=== PATIENT | female | born 1990 | race Hispanic/Latino ===

== ENCOUNTER 2020-02-15 11:35 | Inpatient (IN) | payer OTHER, MEDICAID ==
[~2020-02-15] VITALS: Ht 152.4 cm; Wt 123.4 kg
[2020-02-15] MEDS ORDERED: LACTATED RINGERS 1000ML 1,000 ML IV PRN (11:57)
[2020-02-15] MEDS ORDERED: AMPICILLIN 2GM+NS 100ML 100 ML IV ONE (12:56)
[2020-02-15 12:57] LABS: HEMATOCRIT 34.1 % (36-48); MEAN CORPUSCULAR HEMOGLOBIN 28.1 pg (27.0-33.0); MEAN CORPUSCULAR HGB CONC 33.1 g/dL (32.0-36.0); MEAN CORPUSCULAR VOLUME 84.8 fL (79-99); RED BLOOD CELL COUNT(AUTO) 4.02 MIL/uL (4.00-5.50); RED CELL DISTRIBUTION WIDTH 13.6 % (11.0-15.5); WHITE BLOOD COUNT (AUTO) 10.9 K/uL (4.8-10.8)
[2020-02-15 12:58] LABS: APPEARANCE,URINE Cloudy (CLEAR); BILIRUBIN,URINE Negative (NEGATIVE); COLOR,URINE Dark Yellow (YELLOW); GLUCOSE, URINE (UA) Negative (NEGATIVE); KETONES,URINE >=80 mg/dL (NEGATIVE); LEUKOCYTE ESTERASE ,URINE Small (NEGATIVE); NITRATE,URINE Negative (NEGATIVE); OCCULT BLOOD,URINE Negative (NEGATIVE); PH,URINE 6.5 (5.0-8.0); PROTEIN,URINE Trace mg/dL (NEGATIVE)
[2020-02-15] MEDS ORDERED: OXYTOCIN 10 USP UNITS/ML 20 UNIT in LACTATED RINGERS 1000ML 1,000 ML IV SCH (13:00)
[2020-02-15] MEDS ORDERED: AMPICILLIN 2GM+NS 100ML 100 ML IV SCH (13:00)
[2020-02-15] MEDS ORDERED: EPHEDRINE SULFATE 50 MG/ML AMPULE IVP PRN (13:00)
[2020-02-15] MEDS ORDERED: NALOXONE HCL 0.4 MG/1 ML ML IV PRN (13:00)
[2020-02-15] MEDS ORDERED: LACTATED RINGERS 500 ML 500 ML IV PRN (13:00)
[2020-02-15 13:06] LABS: AMPHET/METH SCREEN,URINE NEGATIVE (NEGATIVE); BARBITURATE SCREEN, URINE NEGATIVE (NEGATIVE); BENZODIAZEPINES SCREEN,URINE NEGATIVE (NEGATIVE); CANNABINOID SCREEN,URINE NEGATIVE (NEGATIVE); COCAINE SCREEN,URINE NEGATIVE (NEGATIVE); OPIATE SCREEN,URINE NEGATIVE (NEGATIVE); PHENCYCLIDINE SCREEN,URINE NEGATIVE (NEGATIVE)
[2020-02-15 13:07] LABS: RBC,URINE 0-1 /HPF (0-1)
[2020-02-15 13:08] LABS: BACTERIA,URINE Rare /HPF (None Seen); MUCUS,URINE Rare LPF (None Seen); SQUAMOUS EPITHELIAL CELL,UR Moderate /HPF (0-2)
[2020-02-15] MEDS: OXYTOCIN-LR 20 UNITS/1000 ML 1,000 ML IV SCH (13:47)
[2020-02-15] MEDS ORDERED: PROMETHAZINE HCL 25 MG/ML 1ML AMPULE IM SCH (14:00)
[2020-02-15] MEDS ORDERED: MEPERIDINE-PF 50 MG/ML SYG IVP ONE (14:00)
[2020-02-15] MEDS: AMPICILLIN 1GM+NS 50ML 50 ML IV SCH ×2 (17:14→21:00)
[2020-02-15] MEDS ORDERED: ACETAMINOPHEN-CODEINE 300/30MG TAB PO PRN (23:45)
[2020-02-15] MEDS ORDERED: DIPH,PERTUSS(ACELL),TET VAC/PF 0.5 ML VIAL IM PRN (23:45)
[2020-02-15] MEDS ORDERED: WITCH HAZEL 1 PAD TP PRN (23:45)
[2020-02-15] MEDS ORDERED: ACETAMINOPHEN 325 MG TAB PO PRN (23:45)
[2020-02-15] MEDS ORDERED: MEASLES/MUMPS/RUBELLA VACCINE, LIVE 0.5 ML/VIAL SQ PRN (23:45)
[2020-02-15] MEDS ORDERED: BENZOCAINE/LANOLIN/ALOE VERA 60 ML AEROSOL TP PRN (23:45)
[2020-02-15] MEDS ORDERED: LANOLIN 30GM OINTMENT TP PRN (23:45)
[2020-02-16] VITALS (7 sets, daily range): BP systolic 104–126; BP diastolic 59–80
[2020-02-16] MEDS: IBUPROFEN 600 MG TABLET PO PRN ×3 (00:34→20:53)
[2020-02-16] MEDS: OXYTOCIN-LR 20 UNITS/1000 ML 1,000 ML IV SCH (00:49)
[2020-02-16] MEDS ORDERED: PREN-154 PO (03:29)
--- NOTE | 2020-02-16 04:00 | NUR ---
PT. INCONTINENT OF URINE IN BED, ASSISTED TO BATHROOM BY MIGUELITO, VOIDED MORE IN THE COMMODE. SKIN CARE GIVEN AND LINEN AND GOWN CHANGED. SCAN AMT. OF MARIANELA NOTED. PT. ASSIST BACK IN BED, WELL TOLERATED.
[2020-02-16] MEDS: DOCUSATE SODIUM 100 MG CAP PO SCH ×2 (09:10→20:48)
--- NOTE | 2020-02-16 15:40 | NUR ---
REPORT GIVEN TO VINCENT TIAN RN FOR CONTINUITY OF CARE. PT IN STABLE CONDITION. NO COMPLAINTS AT THIS TIME.
[2020-02-17 03:00] VITALS: BP 135/87
[2020-02-17 05:13] LABS: HEPATITIS Bs ANTIGEN SCREEN P Negative (Negative)
--- NOTE | 2020-02-17 07:30 | NUR ---
DR. CARPENTER ROUNDING ON PATIENT. DISCHARGE POC DISCUSSED WITH PATIENT. PATIENT OKAY FOR DISCHARGE.
[2020-02-17 07:35] VITALS: BP 129/81
[2020-02-17] MEDS: DOCUSATE SODIUM 100 MG CAP PO SCH (09:02)
[2020-02-17] MEDS: IBUPROFEN 600 MG TABLET PO PRN (09:04)
[2020-02-17 11:06] VITALS: BP 130/83
--- NOTE | 2020-02-17 11:30 | NUR ---
PATIENT LEFT UNIT VIA WHEELCHAIR WITH BABY IN ARMS. PERSONAL VEHICLE USED FOR TRANSPORTATION ACCOMPANIED BY SIGNIFICANT OTHER. NO COMPLAINTS OR CONCERNS ADDRESSED FROM PATIENT ON DISCHARGE.
== END 2020-02-17 11:30 | disposition home or self-care (01) | DRG 807 ==
LOC: EDH 11:35 → LDH 11:36 → INTOOBSV 11:36 → OBSVTOIN 11:36 → WSH 02-16 01:32
PROVIDERS: ADMIT Specialist; ATTEND Specialist
PROC: 10E0XZZ Delivery of Products of Conception, External Approach (ICD-10-PCS; principal; 2020-02-15)
PROC: 0W8NXZZ Division of Female Perineum, External Approach (ICD-10-PCS; 2020-02-15)
PROC: 3E0R3BZ Introduction of Anesthetic Agent into Spinal Canal, Percutaneous Approach (ICD-10-PCS; 2020-02-15)
PROC: 00HU33Z Insertion of Infusion Device into Spinal Canal, Percutaneous Approach (ICD-10-PCS; 2020-02-15)
PROC: 3E0234Z Introduction of Serum, Toxoid and Vaccine into Muscle, Percutaneous Approach (ICD-10-PCS; 2020-02-15)
PROC: 3E0134Z Introduction of Serum, Toxoid and Vaccine into Subcutaneous Tissue, Percutaneous Approach (ICD-10-PCS; 2020-02-15)
DX: O60.14X0 Preterm labor third trimester with preterm delivery third trimester, not applicable or unspecified (principal); Z37.0 Single live birth; O99.214 Obesity complicating childbirth; E66.01 Morbid (severe) obesity due to excess calories; Z3A.36 36 weeks gestation of pregnancy; Z23 Encounter for immunization; O42.913 Preterm premature rupture of membranes, unspecified as to length of time between rupture and onset of labor, third trimester
CPT/HCPCS: 36415; 80305; 81001; 85027; 86592; 86701; 86850; 86900; 86901; 87088; 87340; 87390; A4314; G0378; J0290; J2590; J7120

== ENCOUNTER 2020-02-25 22:01 | Observation (INO) | payer OTHER, MEDICAID ==
[~2020-02-25] VITALS: Ht 152.4 cm; Wt 117.0 kg
[~2020-02-25 22:01] MED LIST: PREN-154 PO
[2020-02-25] MEDS ORDERED: MORPHINE SULFATE 4 MG/1ML SYG ONE (22:21)
[2020-02-25] MEDS ORDERED: ONDANSETRON HCL 4 MG/2 ML VIAL ONE (22:21)
[2020-02-25 22:49] LABS: BASOPHILS % (AUTO) 0.3 % (0.0-5.0); EOSINOPHILS % (AUTO) 1.8 % (0.0-8.0); HEMATOCRIT 36.7 % (36-48); LYMPHOCYTES % (AUTO) 26.7 % (21.0-51.0); MEAN CORPUSCULAR HEMOGLOBIN 27.4 pg (27.0-33.0); MEAN CORPUSCULAR HGB CONC 32.2 g/dL (32.0-36.0); MEAN CORPUSCULAR VOLUME 85.2 fL (79-99); MONOCYTES % (AUTO) 3.5 % (3.0-13.0); NEUTROPHILS % (AUTO) 67.4 % (40.0-77.0); PLATELET COUNT (AUTO) 352 K/uL (130-400); RED BLOOD CELL COUNT(AUTO) 4.31 MIL/uL (4.00-5.50); RED CELL DISTRIBUTION WIDTH 13.2 % (11.0-15.5); WHITE BLOOD COUNT (AUTO) 12.1 K/uL (4.8-10.8)
[2020-02-25 22:57] LABS: CREATININE 0.8 mg/dL (0.5-1.5); POTASSIUM 3.1 mmol/L (3.5-5.1)
[2020-02-25 23:02] LABS: APPEARANCE,URINE Turbid (CLEAR); BILIRUBIN,TOTAL 0.3 mg/dL (0.2-1.0); BILIRUBIN,URINE Negative (NEGATIVE); COLOR,URINE Red (YELLOW); GLUCOSE, URINE (UA) Negative (NEGATIVE); KETONES,URINE Negative (NEGATIVE); LEUKOCYTE ESTERASE ,URINE Large (NEGATIVE); NITRATE,URINE Negative (NEGATIVE); OCCULT BLOOD,URINE Large (NEGATIVE); PH,URINE 5.5 (5.0-8.0); PROTEIN,URINE POS 2+ mg/dL (NEGATIVE); TOTAL PROTEIN, SERUM 7.8 g/dL (6.0-8.3)
[2020-02-25 23:04] LABS: HCG,QUAL RESULT NEGATIVE (NEGATIVE)
[2020-02-25 23:13] LABS: BACTERIA,URINE Rare /HPF (None Seen); RBC,URINE 51-100 /HPF (0-1); SQUAMOUS EPITHELIAL CELL,UR Few /HPF (0-2); WBC,URINE 26-50 /HPF (0-1)
[2020-02-26] MEDS ORDERED: ZOSYN 3.375GM+NS 50ML 50 ML IV ONE ×2 (01:06→08:33)
[2020-02-26] MEDS ORDERED: POTASSIUM CHLORIDE 20MEQ/100ML 100 ML IV ONE (01:34)
[2020-02-26] MEDS ORDERED: SODIUM CHLORIDE 0.9% 1000ML 1,000 ML, 0.9 % SODIUM CHLORIDE 1,000 ML IV SCH ×2 (02:20)
[2020-02-26] MEDS ORDERED: DiphenhydrAMINE HCL 50 MG/ML VIAL IV PRN (02:30)
[2020-02-26] MEDS ORDERED: ACETAMINOPHEN 325 MG TAB PO PRN ×2 (02:30)
[2020-02-26] MEDS ORDERED: MORPHINE SULFATE 2 MG/ML 1ML SYG IVP PRN (02:30)
[2020-02-26] MEDS ORDERED: ONDANSETRON HCL 4 MG/2 ML VIAL IV PRN (02:30)
[2020-02-26 04:57] LABS: BASOPHILS % (AUTO) 0.2 % (0.0-5.0); EOSINOPHILS % (AUTO) 0.2 % (0.0-8.0); LYMPHOCYTES % (AUTO) 12.6 % (21.0-51.0); MEAN CORPUSCULAR HEMOGLOBIN 27.6 pg (27.0-33.0); MEAN CORPUSCULAR HGB CONC 32.5 g/dL (32.0-36.0); MEAN CORPUSCULAR VOLUME 84.9 fL (79-99); NEUTROPHILS % (AUTO) 79.7 % (40.0-77.0); PLATELET COUNT (AUTO) 299 K/uL (130-400); RED BLOOD CELL COUNT(AUTO) 3.77 MIL/uL (4.00-5.50); RED CELL DISTRIBUTION WIDTH 13.2 % (11.0-15.5); WHITE BLOOD COUNT (AUTO) 10.1 K/uL (4.8-10.8)
[2020-02-26 05:28] LABS: ALBUMIN 2.4 g/dL (3.5-5.0); BILIRUBIN,TOTAL 0.6 mg/dL (0.2-1.0); CREATININE 0.7 mg/dL (0.5-1.5); MAGNESIUM 1.9 mg/dL (1.80-2.40); PHOSPHORUS 4.5 mg/dL (2.5-4.9); POTASSIUM 3.9 mmol/L (3.5-5.1); TOTAL PROTEIN, SERUM 6.5 g/dL (6.0-8.3)
[2020-02-26] MEDS ORDERED: RENAL DOSE IV SCH (07:30)
[2020-02-26] MEDS ORDERED: FAMOTIDINE/PF 20 MG/2 ML VIAL IV ONE (08:34)
[2020-02-26] MEDS ORDERED: FAMOTIDINE/PF 20 MG/2 ML VIAL IV SCH (09:00)
[2020-02-26] MEDS ORDERED: MORPHINE SULFATE 2 MG/ML 1ML SYG ONE (09:32)
--- NOTE | 2020-02-26 11:45 | NUR ---
PATIENT ARRIVED TO UNIT FROM ER. PATIENT ORIENTED TO ROOM AT THIS TIME. PATIENT IS CRYING STATING THAT SHE MISSES HER BABY. (PT DELIVERED 02/16/20) PATIENT REPORTS NO PAIN AT THIS TIME.
[2020-02-26 11:54] VITALS: BP 122/85
--- NOTE | 2020-02-26 12:10 | NUR ---
LORI AT DR. AMELIA CHRISTENSEN'S OFFICE NOTIFIED OF GI CONSULT FOR DR. CHRISTENSEN. LORI WILL NOTIFY
--- NOTE | 2020-02-26 12:21 | NUR ---
DR. CHRISTENSEN CALLED BACK REGARDING CONSULT. UPDATED ON PATIENT'S STATUS AND CURRENT LABS. NEW ORDERS TO OBTAIN CONSENT FOR ERCP FOR 02/25 AT 1800 RECEIVED
--- NOTE | 2020-02-26 12:25 | NUR ---
POC DISCUSSED WITH PATIENT. PT VOICED UNDERSTANDING.
--- NOTE | 2020-02-26 12:40 | NUR ---
PATIENT STATES SHE DOES NOT WANT ANY PROCEDURES DONE AND IS WANTING TO LEAVE AMA. RISKS OF LEAVING AMA DISCUSSED WITH PATIENT. INFORMED PATIENT THAT SHE CAN HAVE TIME BEFORE MAKING FINAL DECISION. PATIENT STATES SHE DOES NOT NEED MORE TIME AND WANTS TO LEAVE.
--- NOTE | 2020-02-26 12:42 | NUR ---
DEWATERING FILTERING SUPERVISOR RASHI ENGLE NOTIFIED THAT PATIENT WISHES TO LEAVE AMA.
--- NOTE | 2020-02-26 12:42 | NUR ---
VINCENT CHENEY RN NOTIFIED PATIENT WANTS TO LEAVE A
--- NOTE | 2020-02-26 12:50 | NUR ---
DR. CHRISTENSEN NOTIFIED THAT PATIENT DECIDED TO LEAVE AMA.
--- NOTE | 2020-02-26 12:52 | NUR ---
DR. SALAZAR INFORMED PATIENT WANTS TO LEAVE AMA. VERBALIZED UNDERSTANDING. AMA FORM TO BE FILLED PER PROTOCOL.
[2020-02-26] MEDS ORDERED: ZOSYN 3.375GM+NS 50ML 50 ML IV SCH (13:00)
--- NOTE | 2020-02-26 13:10 | NUR ---
REEDUCATED PATIENT ON THE RISKS OF LEAVING AMA. PATIENT VOICED UNDERSTANDING AND VERBALIZED SHE WANTS TO SIGN AMA. AMA FORM SIGNED BY PATIENT. 20G IV REMOVED FROM RIGHT AC. TIP INTACT, BANDAID APPLIED SITE WNL
--- NOTE | 2020-02-26 13:15 | NUR ---
PATIENT LEFT UNIT VIA SELF AMBULATION. STEADY GAIT NOTED.
== END 2020-02-26 13:15 | disposition left against medical advice (07) ==
LOC: EDH 22:01 → EDHIP 02-26 02:20 → INTOOBSV 02-26 02:20 → WSH 02-26 11:50
PROVIDERS: ADMIT Internal Medicine; ATTEND Internal Medicine
DX: K80.50 Calculus of bile duct without cholangitis or cholecystitis without obstruction (principal); Z20.828 Contact with and (suspected) exposure to other viral communicable diseases
CPT/HCPCS: 36415 ×2; 74181; 76705; 80053 ×2; 81001; 81025; 83690; 83735 ×2; 84100; 85025 ×2; 87040 ×2; 87088; 87426; 99284; G0378 ×11; J2270; J2405; J2543 ×2; J3480; J3490; J7030; U0003

== ENCOUNTER 2020-02-26 20:02 | Inpatient (IN) | payer OTHER, MEDICAID ==
[~2020-02-26] VITALS: Ht 152.4 cm; Wt 115.7 kg
[2020-02-26 20:49] LABS: BASOPHILS % (AUTO) 0.4 % (0.0-5.0); EOSINOPHILS % (AUTO) 1.4 % (0.0-8.0); HEMATOCRIT 33.5 % (36-48); MEAN CORPUSCULAR HEMOGLOBIN 27.4 pg (27.0-33.0); MEAN CORPUSCULAR HGB CONC 32.2 g/dL (32.0-36.0); MONOCYTES % (AUTO) 4.4 % (3.0-13.0); NEUTROPHILS % (AUTO) 66.3 % (40.0-77.0); PLATELET COUNT (AUTO) 335 K/uL (130-400); RED BLOOD CELL COUNT(AUTO) 3.94 MIL/uL (4.00-5.50); RED CELL DISTRIBUTION WIDTH 13.2 % (11.0-15.5); WHITE BLOOD COUNT (AUTO) 5.7 K/uL (4.8-10.8)
[2020-02-26 20:57] LABS: APPEARANCE,URINE Clear (CLEAR); BILIRUBIN,URINE Moderate (NEGATIVE); COLOR,URINE Dark Yellow (YELLOW); GLUCOSE, URINE (UA) Negative (NEGATIVE); KETONES,URINE Negative (NEGATIVE); LEUKOCYTE ESTERASE ,URINE Moderate (NEGATIVE); NITRATE,URINE Negative (NEGATIVE); OCCULT BLOOD,URINE Moderate (NEGATIVE); PROTEIN,URINE Negative (NEGATIVE)
[2020-02-26 20:58] LABS: CREATININE 0.6 mg/dL (0.5-1.5); POTASSIUM 3.6 mmol/L (3.5-5.1)
[2020-02-26 21:02] LABS: ALBUMIN 2.8 g/dL (3.5-5.0); BILIRUBIN,TOTAL 1.7 mg/dL (0.2-1.0); HCG,QUAL RESULT NEGATIVE (NEGATIVE); TOTAL PROTEIN, SERUM 7.1 g/dL (6.0-8.3)
[2020-02-26] MEDS ORDERED: ZOSYN 3.375GM+NS 50ML 50 ML IV ONE (21:12)
[2020-02-26 21:19] LABS: BACTERIA,URINE Few /HPF (None Seen); MUCUS,URINE Few LPF (None Seen); SQUAMOUS EPITHELIAL CELL,UR Few /HPF (0-2)
[2020-02-26] MEDS ORDERED: LACTATED RINGERS 1000ML 1,000 ML, LACTATED RINGERS 1000ML 1,000 ML IV SCH (21:41)
[2020-02-26] MEDS ORDERED: ACETAMINOPHEN 325 MG TAB PO PRN (21:45)
[2020-02-26] MEDS ORDERED: DiphenhydrAMINE HCL 50 MG/ML VIAL IV PRN (21:45)
[2020-02-26] MEDS ORDERED: MORPHINE SULFATE 2 MG/ML 1ML SYG IV PRN (21:45)
[2020-02-26] MEDS ORDERED: ONDANSETRON HCL 4 MG/2 ML VIAL IV PRN (21:45)
[2020-02-26] MEDS: ENOXAPARIN SODIUM 40 MG/0.4 ML SYRINGE SQ SCH (21:45)
[2020-02-26] MEDS ORDERED: ZOLPIDEM TARTRATE 5 MG TAB PO PRN (21:45)
[2020-02-26] MEDS ORDERED: MAG HYDROX/AL HYDROX/SIMETH ES 30 ML SUSP UDCUP PO PRN (21:45)
[2020-02-27 01:41] VITALS: BP 94/54
[2020-02-27 03:50] VITALS: BP 120/68
[2020-02-27] MEDS: MORPHINE SULFATE 4 MG/1ML SYG IV PRN ×2 (05:30→20:23)
[2020-02-27 07:16] LABS: BASOPHILS % (AUTO) 0.4 % (0.0-5.0); EOSINOPHILS % (AUTO) 2.8 % (0.0-8.0); HEMATOCRIT 32.4 % (36-48); LYMPHOCYTES % (AUTO) 38.3 % (21.0-51.0); MEAN CORPUSCULAR HEMOGLOBIN 27.6 pg (27.0-33.0); MEAN CORPUSCULAR HGB CONC 32.4 g/dL (32.0-36.0); MEAN CORPUSCULAR VOLUME 85.3 fL (79-99); MONOCYTES % (AUTO) 4.4 % (3.0-13.0); NEUTROPHILS % (AUTO) 53.7 % (40.0-77.0); PLATELET COUNT (AUTO) 302 K/uL (130-400); RED CELL DISTRIBUTION WIDTH 13.2 % (11.0-15.5); WHITE BLOOD COUNT (AUTO) 6.8 K/uL (4.8-10.8)
[2020-02-27 07:42] LABS: ALBUMIN 2.5 g/dL (3.5-5.0); CREATININE 0.6 mg/dL (0.5-1.5); POTASSIUM 3.5 mmol/L (3.5-5.1); TOTAL PROTEIN, SERUM 6.5 g/dL (6.0-8.3)
[2020-02-27 08:02] VITALS: BP 113/73
[2020-02-27 11:10] VITALS: BP 116/84
[2020-02-27] MEDS: FAMOTIDINE/PF 20 MG/2 ML VIAL IV SCH ×2 (11:13→20:24)
[2020-02-27] MEDS: LACTATED RINGERS 1000ML 1,000 ML IV SCH ×3 (14:03→23:05)
[2020-02-27 16:39] VITALS: BP 119/78
--- NOTE | 2020-02-27 17:21 | NUR ---
DCP CM spoke to pt discussed dc plans. Pt is independent prior to admission, lives at home with spouse. Denies any equipments/services. Feels safe to go back home, still drives and works, spouse able to assist with transportation and needs as necessary. DC plan to home once stable. CM to cont to follow up. Addendum: 02/27/20 at 1722 by DREAD FERRARO LVN CM Amended: Links added.
[2020-02-27 20:00] VITALS: BP 103/66
[2020-02-27] MEDS: ENOXAPARIN SODIUM 40 MG/0.4 ML SYRINGE SQ SCH ×2 (20:24→20:31)
[2020-02-28] VITALS: BP 101/62
[2020-02-28 04:00] VITALS: BP 113/68
[2020-02-28 04:22] LABS: BASOPHILS % (AUTO) 0.4 % (0.0-5.0); EOSINOPHILS % (AUTO) 2.4 % (0.0-8.0); HEMATOCRIT 31.9 % (36-48); LYMPHOCYTES % (AUTO) 39.5 % (21.0-51.0); MEAN CORPUSCULAR HEMOGLOBIN 27.5 pg (27.0-33.0); MEAN CORPUSCULAR HGB CONC 32.3 g/dL (32.0-36.0); MEAN CORPUSCULAR VOLUME 85.1 fL (79-99); MONOCYTES % (AUTO) 3.7 % (3.0-13.0); NEUTROPHILS % (AUTO) 53.6 % (40.0-77.0); PLATELET COUNT (AUTO) 341 K/uL (130-400); RED BLOOD CELL COUNT(AUTO) 3.75 MIL/uL (4.00-5.50); RED CELL DISTRIBUTION WIDTH 13.2 % (11.0-15.5); WHITE BLOOD COUNT (AUTO) 7.6 K/uL (4.8-10.8)
[2020-02-28 04:45] LABS: ALBUMIN 2.5 g/dL (3.5-5.0); BILIRUBIN,TOTAL 0.5 mg/dL (0.2-1.0); CREATININE 0.6 mg/dL (0.5-1.5); MAGNESIUM 1.9 mg/dL (1.80-2.40); PHOSPHORUS 4.6 mg/dL (2.5-4.9); POTASSIUM 3.2 mmol/L (3.5-5.1); TOTAL PROTEIN, SERUM 6.9 g/dL (6.0-8.3)
[2020-02-28] MEDS: LACTATED RINGERS 1000ML 1,000 ML IV SCH ×3 (05:28→20:50)
--- NOTE | 2020-02-28 06:51 | NUR ---
I paged doctor front desk assistant per answering service. [id number], no return call yet, needed. To let them know patient potassium at 3.2.
[2020-02-28 07:54] VITALS: BP 96/57
[2020-02-28] MEDS: FAMOTIDINE/PF 20 MG/2 ML VIAL IV SCH ×2 (09:15→21:35)
[2020-02-28 12:41] VITALS: BP 111/68
[2020-02-28 16:23] VITALS: BP 168/87
[2020-02-28] MEDS ORDERED: LIDOCAINE HCL-MPF 1% 2ML VIAL IV PRN (20:00)
[2020-02-28] MEDS ORDERED: POTASSIUM CHLORIDE 20MEQ/100ML 100 ML IV PRN (20:00)
[2020-02-28] MEDS ORDERED: POTASSIUM CHLORIDE 10% ELIXIR 20 MEQ/15 ML UDCUP PO PRN (20:00)
[2020-02-28 20:28] VITALS: BP 120/77
[2020-02-28] MEDS: MORPHINE SULFATE 4 MG/1ML SYG IV PRN (22:23)
[2020-02-28] MEDS: POTASSIUM CHLORIDE 20 MEQ ERTAB PO PRN (23:47)
[2020-02-29 00:07] VITALS: BP 115/54
[2020-02-29] MEDS: LACTATED RINGERS 1000ML 1,000 ML IV SCH ×3 (02:54→16:55)
[2020-02-29 03:55] VITALS: BP 112/64
[2020-02-29 06:45] LABS: BASOPHILS % (AUTO) 0.4 % (0.0-5.0); EOSINOPHILS % (AUTO) 2.2 % (0.0-8.0); HEMATOCRIT 32.6 % (36-48); LYMPHOCYTES % (AUTO) 35.1 % (21.0-51.0); MEAN CORPUSCULAR HEMOGLOBIN 27.4 pg (27.0-33.0); MEAN CORPUSCULAR HGB CONC 32.5 g/dL (32.0-36.0); MEAN CORPUSCULAR VOLUME 84.2 fL (79-99); MONOCYTES % (AUTO) 5.2 % (3.0-13.0); NEUTROPHILS % (AUTO) 56.8 % (40.0-77.0); PLATELET COUNT (AUTO) 308 K/uL (130-400); RED BLOOD CELL COUNT(AUTO) 3.87 MIL/uL (4.00-5.50); RED CELL DISTRIBUTION WIDTH 13.2 % (11.0-15.5); WHITE BLOOD COUNT (AUTO) 7.4 K/uL (4.8-10.8)
[2020-02-29 08:21] VITALS: BP 115/67
[2020-02-29 08:51] LABS: ALBUMIN 2.5 g/dL (3.5-5.0); BILIRUBIN,TOTAL 0.7 mg/dL (0.2-1.0); CREATININE 0.6 mg/dL (0.5-1.5); POTASSIUM 3.4 mmol/L (3.5-5.1); TOTAL PROTEIN, SERUM 6.5 g/dL (6.0-8.3)
[2020-02-29] MEDS: FAMOTIDINE/PF 20 MG/2 ML VIAL IV SCH ×2 (09:17→21:49)
[2020-02-29] MEDS: POTASSIUM CHLORIDE 20 MEQ ERTAB PO PRN ×2 (11:10→16:22)
[2020-02-29] MEDS: MORPHINE SULFATE 4 MG/1ML SYG IV PRN ×2 (11:12→18:47)
[2020-02-29 11:41] VITALS: BP 121/66
[2020-02-29] MEDS ORDERED: CEFAZOLIN SODIUM 1 GM VIAL IVP PRN (14:30)
[2020-02-29 16:35] VITALS: BP 117/72
[2020-02-29 20:00] VITALS: BP 114/66
[2020-03-01] VITALS (25 sets, daily range): BP systolic 109–138; BP diastolic 56–89
[2020-03-01] MEDS: LACTATED RINGERS 1000ML 1,000 ML IV SCH ×4 (00:07→21:11)
[2020-03-01 03:58] LABS: BASOPHILS % (AUTO) 0.4 % (0.0-5.0); EOSINOPHILS % (AUTO) 2.3 % (0.0-8.0); HEMATOCRIT 32.9 % (36-48); LYMPHOCYTES % (AUTO) 39.6 % (21.0-51.0); MEAN CORPUSCULAR HGB CONC 32.2 g/dL (32.0-36.0); MEAN CORPUSCULAR VOLUME 83.9 fL (79-99); MONOCYTES % (AUTO) 4.8 % (3.0-13.0); NEUTROPHILS % (AUTO) 52.5 % (40.0-77.0); PLATELET COUNT (AUTO) 320 K/uL (130-400); RED BLOOD CELL COUNT(AUTO) 3.92 MIL/uL (4.00-5.50); RED CELL DISTRIBUTION WIDTH 13.2 % (11.0-15.5); WHITE BLOOD COUNT (AUTO) 7.5 K/uL (4.8-10.8)
[2020-03-01 04:20] LABS: ALBUMIN 2.6 g/dL (3.5-5.0); BILIRUBIN,TOTAL 0.9 mg/dL (0.2-1.0); CREATININE 0.6 mg/dL (0.5-1.5); POTASSIUM 3.6 mmol/L (3.5-5.1); TOTAL PROTEIN, SERUM 6.6 g/dL (6.0-8.3)
[2020-03-01] MEDS: FAMOTIDINE/PF 20 MG/2 ML VIAL IV SCH ×2 (09:06→21:10)
[2020-03-01] MEDS ORDERED: BUPIVACAINE/PF 0.5% 30ML VIAL ONE (10:56)
[2020-03-01] MEDS ORDERED: ONDANSETRON HCL 4 MG/2 ML VIAL ONE (11:02)
[2020-03-01] MEDS ORDERED: GLYCOPYRROLATE 1 MG/5 ML SYRINGE ONE (11:02)
[2020-03-01] MEDS ORDERED: MIDAZOLAM HCL 1 MG/ML 2ML VIAL ONE (11:02)
[2020-03-01] MEDS ORDERED: LIDOCAINE PF 2% 5ML ABBOJECT ONE (11:02)
[2020-03-01] MEDS ORDERED: SUCCINYLCHOLINE CHLORIDE 20 MG/ML 10 ML VIAL ONE (11:02)
[2020-03-01] MEDS ORDERED: DEXAMETHASONE SOD PHOSPHATE 10MG/ML 1ML VIAL ONE (11:02)
[2020-03-01] MEDS ORDERED: PROPOFOL 10 MG/ML 20ML VIAL IV ONE (11:03)
[2020-03-01] MEDS ORDERED: ROCURONIUM 10MG/1ML SYR 10 MG/ML ML ONE (11:03)
[2020-03-01] MEDS ORDERED: FENTANYL CITRATE PF 50 MCG/1 ML 2ML VIAL ONE ×2 (11:03→11:47)
[2020-03-01] MEDS ORDERED: NEOSTIGMINE 5MG/5ML SYR IV ONE (11:03)
[2020-03-01] MEDS ORDERED: PHENYLEPHRINE HCL 10 MG/ML 1ML VIAL IV ONE (11:25)
[2020-03-01] MEDS ORDERED: MEPERIDINE-PF 25 MG/ML SYG ONE ×3 (11:55→12:19)
[2020-03-01] MEDS: MORPHINE SULFATE 4 MG/1ML SYG IV PRN (14:23)
--- NOTE | 2020-03-01 18:30 | NUR ---
VOIDED assisted pt to bathroom voided without difficulty
[2020-03-01] MEDS: CEFAZOLIN SODIUM 1 GM VIAL IVP SCH (21:10)
--- NOTE | 2020-03-01 21:10 | NUR ---
ACTIVITY Pt ambulating in the room to the bathroom,donna well.
[2020-03-01] MEDS: ACETAMINOPHEN-CODEINE 300/30MG TAB PO PRN (21:11)
--- NOTE | 2020-03-02 01:00 | NUR ---
AD KAYODE Pt ambulating in the hallway,donna well.
[2020-03-02 03:32] VITALS: BP 125/74
[2020-03-02] MEDS: CEFAZOLIN SODIUM 1 GM VIAL IVP SCH (04:14)
[2020-03-02] MEDS: LACTATED RINGERS 1000ML 1,000 ML IV SCH ×4 (04:15→21:51)
[2020-03-02] MEDS: LACTULOSE 20 GM/30 ML UDCUP PO PRN ×2 (04:16→21:09)
--- NOTE | 2020-03-02 04:34 | NUR ---
LACTULOSE Pt states she wants something to help her have a bowel movement,since she can feel it but has not pass gas yet.Lactulose given.
[2020-03-02 06:03] LABS: BASOPHILS % (AUTO) 0.2 % (0.0-5.0); HEMATOCRIT 31.6 % (36-48); LYMPHOCYTES % (AUTO) 21.3 % (21.0-51.0); MEAN CORPUSCULAR HEMOGLOBIN 27.5 pg (27.0-33.0); MEAN CORPUSCULAR HGB CONC 32.9 g/dL (32.0-36.0); MEAN CORPUSCULAR VOLUME 83.6 fL (79-99); MONOCYTES % (AUTO) 5.8 % (3.0-13.0); NEUTROPHILS % (AUTO) 72.4 % (40.0-77.0); PLATELET COUNT (AUTO) 308 K/uL (130-400); RED BLOOD CELL COUNT(AUTO) 3.78 MIL/uL (4.00-5.50); RED CELL DISTRIBUTION WIDTH 13.2 % (11.0-15.5); WHITE BLOOD COUNT (AUTO) 9.5 K/uL (4.8-10.8)
[2020-03-02 06:37] LABS: ALBUMIN 2.5 g/dL (3.5-5.0); BILIRUBIN,TOTAL 1.9 mg/dL (0.2-1.0); CREATININE 0.7 mg/dL (0.5-1.5); TOTAL PROTEIN, SERUM 6.4 g/dL (6.0-8.3)
[2020-03-02 07:51] VITALS: BP 140/79
--- NOTE | 2020-03-02 08:30 | NUR ---
Dr Hoskins here spoke with pt plan to stay tonight recheck labs in AM
[2020-03-02] MEDS: FAMOTIDINE/PF 20 MG/2 ML VIAL IV SCH ×2 (09:00→20:07)
[2020-03-02 11:12] VITALS: BP 142/90
[2020-03-02 16:00] VITALS: BP 135/82
[2020-03-02] MEDS: ACETAMINOPHEN-CODEINE 300/30MG TAB PO PRN (18:56)
[2020-03-02 20:00] VITALS: BP 120/92
--- NOTE | 2020-03-02 22:00 | NUR ---
LACTULOSE Pt medicated with Lactulose as per request.
[2020-03-02 23:53] VITALS: BP 121/70
[2020-03-03] MEDS: LACTATED RINGERS 1000ML 1,000 ML IV SCH ×2 (02:27→10:10)
[2020-03-03 04:00] VITALS: BP 133/76
[2020-03-03 05:36] LABS: BASOPHILS % (AUTO) 0.5 % (0.0-5.0); EOSINOPHILS % (AUTO) 1.7 % (0.0-8.0); HEMATOCRIT 30.4 % (36-48); LYMPHOCYTES % (AUTO) 44.6 % (21.0-51.0); MEAN CORPUSCULAR HEMOGLOBIN 27.3 pg (27.0-33.0); MEAN CORPUSCULAR HGB CONC 31.9 g/dL (32.0-36.0); MEAN CORPUSCULAR VOLUME 85.6 fL (79-99); MONOCYTES % (AUTO) 4.1 % (3.0-13.0); NEUTROPHILS % (AUTO) 48.7 % (40.0-77.0); PLATELET COUNT (AUTO) 250 K/uL (130-400); RED BLOOD CELL COUNT(AUTO) 3.55 MIL/uL (4.00-5.50); RED CELL DISTRIBUTION WIDTH 13.3 % (11.0-15.5); WHITE BLOOD COUNT (AUTO) 7.7 K/uL (4.8-10.8)
[2020-03-03 05:49] LABS: ALBUMIN 2.4 g/dL (3.5-5.0); BILIRUBIN,DIRECT 0.4 mg/dL (0.0-0.3); BILIRUBIN,TOTAL 0.7 mg/dL (0.2-1.0); CREATININE 0.6 mg/dL (0.5-1.5); POTASSIUM 3.5 mmol/L (3.5-5.1); TOTAL PROTEIN, SERUM 5.9 g/dL (6.0-8.3)
[2020-03-03] MEDS: POTASSIUM CHLORIDE 20 MEQ ERTAB PO PRN ×2 (06:21→10:11)
[2020-03-03 08:00] VITALS: BP 119/84
[2020-03-03] MEDS: FAMOTIDINE/PF 20 MG/2 ML VIAL IV SCH (10:09)
[2020-03-03] MEDS: ACETAMINOPHEN-CODEINE 300/30MG TAB PO PRN (10:19)
[2020-03-03 12:00] VITALS: BP 117/97
[2020-03-03 16:00] VITALS: BP 123/83
== END 2020-03-03 16:45 | disposition home or self-care (01) | DRG 769 ==
LOC: EDH 20:02 → EDHIP 23:06 → 3BH 02-27 00:50
PROVIDERS: ADMIT Hospitalist; ATTEND Hospitalist
PROC: 0FT44ZZ Resection of Gallbladder, Percutaneous Endoscopic Approach (ICD-10-PCS; principal; 2020-03-01 11:05)
DX: O99.63 Diseases of the digestive system complicating the puerperium (principal); K80.00 Calculus of gallbladder with acute cholecystitis without obstruction; K29.70 Gastritis, unspecified, without bleeding; K76.0 Fatty (change of) liver, not elsewhere classified; O99.215 Obesity complicating the puerperium; O86.20 Urinary tract infection following delivery, unspecified; E66.01 Morbid (severe) obesity due to excess calories; Z83.3 Family history of diabetes mellitus; Z82.5 Family history of asthma and other chronic lower respiratory diseases; Z82.49 Family history of ischemic heart disease and other diseases of the circulatory system
CPT/HCPCS: 36415; 78226; 80053; 80076; 81025; 83690; 83735; 84100; 85025; 87088; A9537; G0378; J0330; J0690; J1100; J1650; J2001; J2175; J2250; J2270; J2370; J2405; J2543; J2704; J2710; J3010; J3490; J7030; J7120